=== PATIENT | female | born 1960 | race American Indian/Alaskan Native ===

== ENCOUNTER 2017-05-13 08:46 | Emergency (ER) | payer MEDICAID ==
[2017-05-13 09:52] LABS: Basophils # (Auto) 0.1 K/mm3 (0.0-0.1); Eosinophils # (Auto) 0.2 K/mm3 (0.0-0.4); Eosinophils % (Auto) 2.6 % (0.0-4.3); Hematocrit 47.3 % (30.3-42.9); Hemoglobin 15.4 gm/dl (10.1-14.3); Lymphocytes # (Auto) 2.7 K/mm3 (1.2-5.4); Lymphocytes % (Auto) 41.4 % (13.4-35.0); Mean Corpuscular HGB Conc 33 % (30-34); Mean Corpuscular Hemoglobin 27 pg (28-32); Mean Corpuscular Volume 84 fl (79-97); Monocytes # (Auto) 0.5 K/mm3 (0.0-0.8); Platelet Count 241 K/mm3 (140-440); Red Blood Count 5.64 M/mm3 (3.65-5.03); Red Cell Distribution Width 14.1 % (13.2-15.2)
[2017-05-13 10:17] LABS: Bacteria,Urine 1+ /HPF (Negative); Bilirubin,Urine NEG (Negative); Blood,Urine NEG (Negative); Color,Urine Yellow (Yellow); Mucus,Urine FEW /HPF; Protein,Urine <15 mg/dL mg/dL (Negative); Urobilinogen,Urine < 2.0 mg/dL (<2.0)
[2017-05-13 10:18] LABS: Alanine Aminotransferase 48 units/L (7-56); Albumin 4.2 g/dL (3.9-5); BUN/Creatinine Ratio 22; Blood Urea Nitrogen 13 mg/dL (7-17); Calcium 9.5 mg/dL (8.4-10.2); Hemolysis Index 4
--- NOTE | 2017-05-13 10:18 | Emergency Department Report ---
ED Abdominal Pain HPI - General Chief Complaint: Abdominal Pain Stated Complaint: BACK PAIN Time Seen by Provider: 05/13/17 10:05 Source: patient Mode of arrival: Ambulatory Limitations: No Limitations - History of Present Illness Initial Comments: Patient complains of left flank pain that radiates into her left lower quadrant for the last week. Patient is concerned because she has a history of diverticulitis as well as kidney stones. MD Complaint: flank pain -: week(s) (1) Location: L flank Radiation: LLQ Severity: moderate Severity scale (0 -10): 5 Quality: sharp Consistency: intermittent Improves With: nothing Worsens With: nothing Associated Symptoms: denies other symptoms - Related Data Home Medications Medication Instructions Recorded Confirmed Last Taken ALBUTEROL Inhaler [ProAir HFA 2 puff IH QID PRN 01/24/14 05/10/15 05/10/15 Inhaler] ALBUTEROL NEB's [Proventil 0.083% 2.5 mg IH Q6H PRN 01/24/14 05/10/15 05/10/15 NEBS] Furosemide [Lasix] 40 mg PO DAILY 01/24/14 05/10/15 05/10/15 Lisinopril [Zestril TAB] 40 mg PO QDAY 01/24/14 05/10/15 05/10/15 Omeprazole [PriLOSEC] 40 mg PO DAILY 01/24/14 05/10/15 05/10/15 Potassium Chloride 10 meq PO QDAY 01/24/14 05/10/15 05/10/15 Propranolol HCl 20 mg PO BID 01/24/14 05/10/15 05/10/15 Previous Rx's Medication Instructions Recorded Last Taken Type traMADol [Ultram] 50 mg PO Q6HR PRN #20 tablet 05/13/17 Unknown Rx Allergies Allergy/AdvReac Type Severity Reaction Status Date / Time acetaminophen Allergy lip Verified 05/10/15 10:06 swelling, tachycardia amlodipine Allergy lip Verified 05/10/15 10:06 swelling, tachycardia ampicillin Allergy Swelling Verified 05/13/17 09:09 carvedilol Allergy lip Verified 05/10/15 10:06 swelling, tachycardia ciprofloxacin [From Cipro] Allergy lip Verified 05/10/15 10:06 swelling, tachycardia ciprofloxacin HCl Allergy lip Verified 05/10/15 10:06 [From Cipro] swelling, tachycardia clonidine Allergy Swelling Verified 05/10/15 10:06 codeine Allergy Shortness Verified 05/13/17 09:09 of Breath hydrochlorothiazide Allergy Hives Verified 05/13/17 09:09 hydrocodone Allergy lip Verified 05/10/15 10:06 swelling, tachycardia levofloxacin [From Levaquin] Allergy ling, Verified 05/10/15 10:06 tachycardia losartan [Losartan] Allergy lip Verified 05/10/15 10:06 swelling, tachycardia moxifloxacin HCl Allergy lip Verified 05/10/15 10:06 [From Avelox] swelling, tachycardia nitrofurantoin Allergy lip Verified 05/10/15 10:06 swelling, tachycardia Penicillins Allergy Swelling Verified 05/10/15 10:06 pregabalin [From Lyrica] Allergy lip Verified 05/10/15 10:06 swelling, tachycardia rosuvastatin calcium Allergy lip Verified 05/10/15 10:06 [From Crestor] swelling, tachycardia, body aches Sulfa (Sulfonamide Allergy lip Verified 05/10/15 10:06 Antibiotics) swelling, tachycardia zolpidem [Zolpidem] Allergy swelling, Verified 05/10/15 10:06 tachycardia ED Review of Systems ROS: Stated complaint: BACK PAIN Other details as noted in HPI Constitutional: denies: chills, fever Eyes: denies: eye pain, eye discharge, vision change ENT: denies: ear pain, throat pain Respiratory: denies: cough, shortness of breath, wheezing Cardiovascular: denies: chest pain, palpitations Endocrine: no symptoms reported Gastrointestinal: denies: abdominal pain, nausea, diarrhea Genitourinary: denies: urgency, dysuria, discharge Musculoskeletal: denies: back pain, joint swelling, arthralgia Skin: denies: rash, lesions Neurological: denies: headache, weakness, paresthesias Psychiatric: denies: anxiety, depression Hematological/Lymphatic: denies: easy bleeding, easy bruising ED Past Medical Hx - Past Medical History Previous Medical History?: Yes Hx Hypertension: Yes (x 30 yrs) Hx Deep Vein Thrombosis: Yes Hx Pulmonary Embolism: Yes (1991) Hx GERD: Yes Hx Headaches / Migraines: Yes (migraines) Hx Asthma: Yes Hx COPD: Yes (since 2003) Additional medical history: FIBROMYALGIA. MORBID OBESITY. lupus. high cholestrol. fatisue. insomnia. interstitial cystitis. neuropathy. fatty liver. diverticulitis. bacterial infections - Surgical History Past Surgical History?: Yes Hx Cholecystectomy: Yes Hx Appendectomy: Yes (11/22) Additional Surgical History: Tubes 1980. hysterecomty - Social History Smoking Status: Never Smoker Substance Use Type: None - Medications Home Medications: Home Medications Medication Instructions Recorded Confirmed Last Taken Type ALBUTEROL Inhaler [ProAir HFA 2 puff IH QID PRN 01/24/14 05/10/15 05/10/15 History Inhaler] ALBUTEROL NEB's [Proventil 0.083% 2.5 mg IH Q6H PRN 01/24/14 05/10/15 05/10/15 History NEBS] Furosemide [Lasix] 40 mg PO DAILY 01/24/14 05/10/15 05/10/15 History Lisinopril [Zestril TAB] 40 mg PO QDAY 01/24/14 05/10/15 05/10/15 History Omeprazole [PriLOSEC] 40 mg PO DAILY 01/24/14 05/10/15 05/10/15 History Potassium Chloride 10 meq PO QDAY 01/24/14 05/10/15 05/10/15 History Propranolol HCl 20 mg PO BID 01/24/14 05/10/15 05/10/15 History traMADol [Ultram] 50 mg PO Q6HR PRN #20 tablet 05/13/17 Unknown Rx ED Physical Exam - General Limitations: No Limitations General appearance: alert, in no apparent distress - Head Head exam: Present: atraumatic, normocephalic - Eye Eye exam: Present: normal appearance - ENT ENT exam: Present: mucous membranes moist - Neck Neck exam: Present: normal inspection - Respiratory Respiratory exam: Present: normal lung sounds bilaterally. Absent: respiratory distress - Cardiovascular Cardiovascular Exam: Present: regular rate, normal rhythm. Absent: systolic murmur, diastolic murmur, rubs, gallop - GI/Abdominal GI/Abdominal exam: Present: soft, normal bowel sounds - Extremities Exam Extremities exam: Present: normal inspection - Back Exam Back exam: Present: normal inspection - Neurological Exam Neurological exam: Present: alert, oriented X3 - Psychiatric Psychiatric exam: Present: normal affect, normal mood - Skin Skin exam: Present: warm, dry, intact, normal color. Absent: rash ED Course Vital Signs 05/13/17 09:10 Temperature 98.4 F Pulse Rate 54 L Respiratory 16 Rate Blood Pressure 133/80 O2 Sat by Pulse 94 Oximetry ED Medical Decision Making - Lab Data Result diagrams: 05/13/17 09:24 05/13/17 09:24 - Medical Decision Making Discussed presents for patient Critical care attestation.: If time is entered above; I have spent that time in minutes in the direct care of this critically ill patient, excluding procedure time. ED Disposition Clinical Impression: Flank pain Disposition: DC-01 TO HOME OR SELFCARE Is pt being admited?: No Does the pt Need Aspirin: No Condition: Stable Instructions: Abdominal Pain (ED) Prescriptions: traMADol [Ultram] 50 mg PO Q6HR PRN #20 tablet PRN Reason: Pain Referrals: LEELEE RAMIREZ MD [Primary Care Provider] - 3-5 Days
--- NOTE | 2017-05-13 12:04 | Cat Scan Report ---
CT ABDOMEN AND PELVIS WITHOUT CONTRAST INDICATION: Flank pain. COMPARISON: 01/05/2013 FINDINGS: Noncontrast abdomen and pelvis CT performed. LUNG BASES: Mild nonspecific distal esophageal wall prominence/thickening, not excluded for gastroesophageal reflux and/or hiatal hernia, amongst others. ABDOMEN: Please note that sensitivity to detect small visceral lesions is limited due to the absence of intravenous or oral contrast. Stable cholecystectomy clips. A 4 mm left lower renal pole calculus now remains with presumed interval passage of another previous small left lower renal pole calculus. Right hepatic lobe 18.5 cm in midclavicular length, previously approximately 18 cm. Otherwise grossly unremarkable unenhanced liver, spleen, pancreas, adrenals, aorta, IVC and kidneys. No ascites or size significant adenopathy. Nonopacified GI tract evaluation limited, though grossly nonobstructive. Mild to moderate stool throughout colon/possible constipation. An umbilical hernia again noted with a transverse neck of 4.7 cm, containing some herniated fat and a small segment of non-strangulated redundant proximal to mid transverse colon. PELVIS: Uterus again surgically absent. Nonopacified urinary bladder suboptimally distended and assessed. Rectosigmoid stool. Mild sigmoid diverticulosis. No free fluid or significant adenopathy. Approximately 2 mm retrolisthesis of L4 over L5 again seen. Interval development of L5-S1 vacuum disc phenomenon. Lower thoracic spine degenerative spurring, extensive lower lumbar facet arthropathy and mild bilateral SI joint changes/iliac aspect sclerosis again noted. CONCLUSION: No acute significant CT abnormality on this unenhanced exam with probable remote interval passage of a small nonobstructing left lower renal pole calculus and development of L5-S1 vacuum disc phenomenon since December 2012 with various other stable findings including an umbilical hernia containing fat and small transverse colon segment, diverticulosis, prior cholecystectomy and hysterectomy as also distal esophageal thickening, amongst others, as detailed above. Thank you for the opportunity to participate in this patient's care.
[2017-05-13 19:39] VITALS: BP 154/73
== END 2017-05-13 12:45 | disposition home or self-care (01) ==
LOC: ED 08:46
DX: R10.32 Left lower quadrant pain (principal); I10 Essential (primary) hypertension; K21.9 Gastro-esophageal reflux disease without esophagitis; J44.9 Chronic obstructive pulmonary disease, unspecified; M32.9 Systemic lupus erythematosus, unspecified; E78.00 Pure hypercholesterolemia, unspecified; G47.00 Insomnia, unspecified; Z90.710 Acquired absence of both cervix and uterus; Z86.718 Personal history of other venous thrombosis and embolism; Z86.711 Personal history of pulmonary embolism; Z90.49 Acquired absence of other specified parts of digestive tract
CPT/HCPCS: 36415; 74176; 80053; 81001; 85025; 99284

== ENCOUNTER 2017-07-14 08:42 | Outpatient (CLI) | payer MEDICAID | END 2017-07-14 08:43 | disposition home or self-care (01) | LOC: VAS 08:42 | PROVIDERS: ATTEND Specialist | DX: M79.662 Pain in left lower leg (principal); R60.0 Localized edema; M79.89 Other specified soft tissue disorders; I10 Essential (primary) hypertension; J44.9 Chronic obstructive pulmonary disease, unspecified; G47.30 Sleep apnea, unspecified; E66.9 Obesity, unspecified; Z90.49 Acquired absence of other specified parts of digestive tract; Z90.710 Acquired absence of both cervix and uterus; Z87.891 Personal history of nicotine dependence | CPT/HCPCS: 93970 ==

== ENCOUNTER 2017-07-20 08:39 | Day surgery (SDC) | payer MEDICAID ==
[2017-07-20] MEDS ORDERED: DIPRIVAN 10 MG/ML IV ONE ×2 (09:23)
[2017-07-20] MEDS ORDERED: NACL 0.9% 1000 ML 1,000 ML IV SCH (10:00)
--- NOTE | 2017-07-20 10:56 | Anesthesia Day of Surgery ---
Anesthesia Day of Surgery - Day of Surgery Patient Examined: Yes Patient H&P Reviewed: Yes Patient is NPO: Yes
--- NOTE | 2017-07-20 10:56 | Anesthesia Consultation ---
Anesthesia Consult and Med Hx Date of service: 07/20/17 - Airway ROM Head & Neck: Adequate Mental/Hyoid Distance: Adequate Mallampati Class: Class III Intubation Access Assessment: Possibly Difficult - Pulmonary Exam CTA: Yes - Cardiac Exam Cardiac Exam: RRR - Pre-Operative Health Status ASA Pre-Surgery Classification: ASA3 Proposed Anesthetic Plan: MAC - Pre-Anesthesia Comment Pre-Anesthesia Comments: pre DM, fibromyalgia, neuropathy - Pulmonary Hx Smoking: Yes (past) Hx Asthma: Yes COPD: Yes (since 2003) Hx Sleep Apnea: Yes - Cardiovascular System Hx Hypertension: Yes - Other Systems Hx Obesity: Yes
--- NOTE | 2017-07-20 11:17 | Short Stay Summary ---
Short Stay Documentation Date of service: 07/20/17 Narrative H&P: The patient presents for EGD to evaluate upper abdominal pain and persistent GERD symptoms. She was also to have surveillance colonoscopy, but the prep did not work. - History Past Medical History: hypertension, other (obesity, lupus, asthma) Past Surgical History: hysterectomy Social history: no significant social history, no smoking, no alcohol abuse - Allergies and Medications Current Medications: Allergies acetaminophen Allergy (Verified 05/10/15 10:06) lip swelling, tachycardia amlodipine Allergy (Verified 05/10/15 10:06) lip swelling, tachycardia ampicillin Allergy (Verified 05/13/17 09:09) Swelling carvedilol Allergy (Verified 05/10/15 10:06) lip swelling, tachycardia ciprofloxacin [From Cipro] Allergy (Verified 05/10/15 10:06) lip swelling, tachycardia ciprofloxacin HCl [From Cipro] Allergy (Verified 05/10/15 10:06) lip swelling, tachycardia clonidine Allergy (Verified 05/10/15 10:06) Swelling codeine Allergy (Verified 05/13/17 09:09) Shortness of Breath hydrochlorothiazide Allergy (Verified 05/13/17 09:09) Hives hydrocodone Allergy (Verified 05/10/15 10:06) lip swelling, tachycardia levofloxacin [From Levaquin] Allergy (Verified 05/10/15 10:06) ling, tachycardia losartan [Losartan] Allergy (Verified 05/10/15 10:06) lip swelling, tachycardia moxifloxacin HCl [From Avelox] Allergy (Verified 05/10/15 10:06) lip swelling, tachycardia nitrofurantoin Allergy (Verified 05/10/15 10:06) lip swelling, tachycardia Penicillins Allergy (Verified 05/10/15 10:06) Swelling pregabalin [From Lyrica] Allergy (Verified 05/10/15 10:06) lip swelling, tachycardia rosuvastatin calcium [From Crestor] Allergy (Verified 05/10/15 10:06) lip swelling, tachycardia, body aches Sulfa (Sulfonamide Antibiotics) Allergy (Verified 05/10/15 10:06) lip swelling, tachycardia zolpidem [Zolpidem] Allergy (Verified 05/10/15 10:06) swelling, tachycardia Home Medications Medication Instructions Recorded Confirmed Last Taken Type ALBUTEROL Inhaler [ProAir HFA 2 puff IH QID PRN 01/24/14 05/10/15 05/10/15 History Inhaler] ALBUTEROL NEB's [Proventil 0.083% 2.5 mg IH Q6H PRN 01/24/14 05/10/15 05/10/15 History NEBS] Furosemide [Lasix] 40 mg PO DAILY 01/24/14 05/10/15 05/10/15 History Lisinopril [Zestril TAB] 40 mg PO QDAY 01/24/14 05/10/15 05/10/15 History Omeprazole [PriLOSEC] 40 mg PO DAILY 01/24/14 05/10/15 05/10/15 History Potassium Chloride 10 meq PO QDAY 01/24/14 05/10/15 05/10/15 History Propranolol HCl 20 mg PO BID 01/24/14 05/10/15 05/10/15 History traMADol [Ultram] 50 mg PO Q6HR PRN #20 tablet 05/13/17 Unknown Rx Active Medications Sodium Chloride (Nacl 0.9% 1000 Ml) 1,000 mls @ 50 mls/hr IV DIRECT [place] Last Admin: 07/20/17 10:40 Dose: 50 mls/hr - Physical exam General appearance: no acute distress, obese Integumentary: no rash, no growths, no abnormal pigmentation HEENT: Atraumatic, PERRLA, EOMI, Mucous membr. moist/pink Lungs: Clear to auscultation, Normal air movement Breasts: deferred Heart: Regular rate, Normal S1, Normal S2, No murmurs, no Gallops Gastrointestinal: normoactive bowel sounds, no tenderness, no distended, no masses, no guarding, no organomegaly, obese Female Genitourinary: deferred Rectal Exam: deferred Extremities: no ischemia, pulses intact, pulses symmetrical, No edema, normal temperature, normal color Neurological: Normal gait, Normal speech, Strength at 5/5 X4 ext, Normal tone, Sensation intact, Cranial nerves 3-12 NL - Brief post op/procedure progress note Date of procedure: 07/20/17 Procedure: see procedure report Estimated blood loss: none Pathology: none Condition: stable - Disposition Condition at discharge: Good Disposition: DC-01 TO HOME OR SELFCARE - Discharge Diagnoses (1) Abdominal pain Status: Acute (2) GERD (gastroesophageal reflux disease) Status: Acute Short Stay Discharge Plan Activity: other (no driving for 24 hours) Weight Bearing Status: Full Weight Bearing Diet: regular Follow up with: LEELEE RAMIREZ MD [Primary Care Provider] - 7 Days
--- NOTE | 2017-07-20 11:20 | Operative Report ---
Operative Report Operative Report: Date of procedure: 07/20/2017 Procedure: Esophagogastroduodenoscopy with biopsies for H. pylori Preprocedure diagnosis: Epigastric pain and chronic gastroesophageal reflux. Post procedure diagnosis: No evidence of Galvan's esophagus. Bile reflux in the stomach without gastritis. Normal duodenum. Endoscopist: Dr. Naranjo Anesthesia: Monitored anesthesia care per anesthesia department Medications: Propofol per anesthesia Estimated blood loss: 0 After careful discussion of the nature and purpose of the procedure as well as details the technique risks benefits and alternatives consent was obtained. The patient was placed in the left lateral decubitus position and medicated per anesthesia. The tip of the Door 6 EQ 570 video scope was passed per orum under direct vision into the esophagus and advanced into the stomach and descending duodenum. The descending duodenum the duodenal bulb and pylorus were symmetrical and normal. The scope was withdrawn into the stomach and the stomach then gently insufflated with air. The antrum was normal. Biopsies were taken for H. pylori in the prepyloric region. The stomach was further insufflated and the scope was then retroflexed and partially withdrawn. The cardia, fundus, and body of the stomach revealed some retained bilious fluid but otherwise were within normal limits and easily distensible.The scope was then withdrawn in the forward position. The esophagogastric junction was at 40 cm. The esophageal body was normal throughout. The procedure was was well tolerated and the patient was observed in recovery. Impressions: No evidence of Galvan's esophagus. Bile reflux without gastritis overtly. No evidence of peptic ulcer disease. Plan: Await biopsies for H. pylori. Continue acid suppression. The patient will go on pantoprazole 40 mg daily. Electronically signed: Olegario Naranjo MD
[2017-07-20 12:02] VITALS: BP 120/78
== END 2017-07-20 08:40 | disposition home or self-care (01) ==
LOC: GIO 08:39
PROVIDERS: ATTEND Internal Medicine Gastroenterology
DX: K29.50 Unspecified chronic gastritis without bleeding (principal); I10 Essential (primary) hypertension; K21.9 Gastro-esophageal reflux disease without esophagitis; J44.9 Chronic obstructive pulmonary disease, unspecified; E66.9 Obesity, unspecified; G62.9 Polyneuropathy, unspecified; M79.7 Fibromyalgia; M32.9 Systemic lupus erythematosus, unspecified; G47.33 Obstructive sleep apnea (adult) (pediatric); Z99.89 Dependence on other enabling machines and devices; Z87.891 Personal history of nicotine dependence; Z90.710 Acquired absence of both cervix and uterus; Z88.1 Allergy status to other antibiotic agents; Z88.5 Allergy status to narcotic agent; Z88.6 Allergy status to analgesic agent; Z88.8 Allergy status to other drugs, medicaments and biological substances; Z88.2 Allergy status to sulfonamides; Z88.0 Allergy status to penicillin
CPT/HCPCS: 43239; 88305; 88342; J2704; J7030